=== PATIENT | female | born 1970 | race Caucasian/White ===

== ENCOUNTER 2020-10-27 12:48 | Emergency (ER) | payer MEDICAID ==
[~2020-10-27] VITALS: Ht 160 cm; Wt 63.0 kg
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
--- NOTE | 2020-10-27 13:49 | NUR ---
PT REMOVED ALL MONITORING EQUIPMENT. REMOVED IV. STATES SHE WANTS TO GO HOME. PT EDUCATED THAT WE ARE GOING TO HAVE THE [facility]I DES[facility] COME TALK TO HER AND HELP HER. PT AGREED TO STAY
--- NOTE | 2020-10-27 13:49 | NUR ---
Report from MITCHELL Ibarra. Assumed care.
[2020-10-27 13:52] LABS: BASOPHILS % (AUTO) 1 % (0-1); EOSINOPHILS % (AUTO) 3 % (1-7); LYMPHOCYTES % (AUTO) 29 % (22-44); MEAN CORPUSCULAR HGB CONC 33.8 g/dL (32.4-35.8); MEAN PLATELET VOLUME 7.1 fL (7.4-10.4); MONOCYTES % (AUTO) 5 % (2-9); NEUTROPHILS % (AUTO) 63 % (42-75); PLATELET COUNT 312 x10^3/uL (130-400); RED BLOOD COUNT 4.86 x10^6/uL (3.82-5.3); RED CELL DISTRIBUTION WIDTH 14.4 % (9.6-15.2)
[2020-10-27 13:55] LABS: MD NO
--- NOTE | 2020-10-27 13:57 | NUR ---
Pt requesting that her be called. This RN offering to take husbands number and call and give him update for pt. Pt refusing to give this RN her number. Pt shouting at RN.
--- NOTE | 2020-10-27 13:59 | NUR ---
Pt refusing to have repeat vital signs taken. Pt refusing to wear any monitoring devices.
[2020-10-27 14:04] LABS: ALBUMIN 4.3 g/dL (3.4-5.0); ANION GAP 8 mmol/L (5-15); CALCIUM 8.8 mg/dL (8.5-10.1); CHLORIDE 108 mmol/L (98-107); SALICYLATE LEVEL 3.2 mg/dL (2.8-20.0)
[2020-10-27 14:09] LABS: ALANINE AMINOTRANSFERASE 38 U/L (12-78); ALKALINE PHOSPHATASE 145 U/L (45-117); BILIRUBIN,TOTAL 0.2 mg/dL (0.2-1.0); CREATININE 0.76 mg/dL (0.55-1.02); TOTAL PROTEIN 8.3 g/dL (6.4-8.2)
--- NOTE | 2020-10-27 14:12 | NUR ---
Pt walked out to nurses station, requesting to call . This RN tried calling pt.'s but the number wouldn't go through. Pt back to room. Now allowing nurse to take vital signs. RN provided pt water. Visiting with pt., redirecting, pt resting in bed more at ease now.
--- NOTE | 2020-10-27 15:24 | NUR ---
Pt using phone, talking to , tearful. States she wants to stay and talk to someone about mental health.
--- NOTE | 2020-10-27 15:40 | NUR ---
Pt moved to room 3. Report given to Mirian.
[2020-10-27] MEDS ORDERED: NAPROXEN 500 MG TABLET ONE (15:48)
[2020-10-27] MEDS ORDERED: NAPROXEN 500 MG TABLET PO ONE (16:00)
--- NOTE | 2020-10-27 16:01 | NUR ---
Pt to ER 3, removed of clothing, sitter outside room. Pt given coffee. Ptaware of plan of care. Pt states history of previous psych admission with dialiaudid and heroin abuse and alcoholism. Pt is in [place].
--- NOTE | 2020-10-27 16:09 | NUR ---
Pt medicated iw naproxen for chornic acute knee pain. sitter outside room. drinking coffee.
--- NOTE | 2020-10-27 16:34 | NUR ---
pt up to bathroom. urine sample provided
[2020-10-27 16:59] LABS: AMPHETAMINE SCREEN, URINE Negative (Negative); BARBITURATE SCREEN, URINE Negative (Negative); BENZODIAZEPINE SCREEN, URINE Negative (Negative); CANNABINOID SCREEN, URINE Negative (Negative); COCAINE SCREEN, URINE Negative (Negative); METHADONE SCREEN, URINE Negative (Negative); OPIATE SCREEN, URINE Negative (Negative)
--- NOTE | 2020-10-27 17:52 | NUR ---
Pt eating dinner. Calm Cooperative. Sitter outside room.
--- NOTE | 2020-10-27 18:46 | NUR ---
Report to Marni MEDRANO. Pt is calm, cooperative and sitter outside of room.
--- NOTE | 2020-10-27 18:49 | NUR ---
bedside report from tucker myrick
--- NOTE | 2020-10-27 19:05 | NUR ---
PT SUPINE ON HOSPITAL BED, RESTING COMFORTABLY WITH EYES CLOSED. PT DENIES ANY NEEDS AT THIS TIME. SAFETY PRECAUTIONS IN PLACE AND SITTER IN VIEW.
--- NOTE | 2020-10-27 20:04 | NUR ---
PT SUPINE ON HOSPITAL BED, RESTING COMFORTABLY WATCHING TV. PT PROVIDED WATER PER REQUEST. PT STATES "LUANA BEEN DRINKING A LOT RECENTLY, I NEED SOMETHING TO CALM DOWN" ERP AWARE. SAFETY PRECAUTIONS IN PLACE AND SITTER IN VIEW.
--- NOTE | 2020-10-27 21:04 | NUR ---
PT SUPINE ON HOSPITAL BED, NADN. RESTING COMFORTABLY WITH EYES CLOSED. PT HAS NO NEEDS AT THIS TIME. SAFETY BROWN DOWN AND SITTER IN VIEW.
[2020-10-27] MEDS ORDERED: LORazepam 1MG TABLET ONE (21:56)
[2020-10-27] MEDS ORDERED: LORazepam 1MG TABLET PO ONE (22:00)
--- NOTE | 2020-10-27 22:01 | NUR ---
ERP AT BEDSIDE. PT REQUESTING "SOMETHING FOR NERVES OR FOR THIS SHAKING I AM HAVING". PT MEDICATED PER EMAR. PT DENIES ANY ADITIONAL NEEDS. PT NOW STATING "I SOMETIMES DO WANT TO HURT MYSELF, I DONT KNOW", ORDER FOR TELE PSYCH PLACED, AWAITING CALL. PT RESTING COMFORTABLY.
--- NOTE | 2020-10-27 22:05 | NUR ---
THROUGHPUT RN: TELEPSYCH PAGED, CAMERA SET UP IN ROOM
--- NOTE | 2020-10-27 22:07 | NUR ---
PT ON WITH TELE PSYCH, ANSWERING QUESTIONS APPROPRIATELY. PT DENIES ANY NEEDS AT THIS TIME. PT REMAINS CALM AND COOPERATIVE WITH STAFF.
--- NOTE | 2020-10-27 23:08 | NUR ---
PT SUPINE ON GURNEY RESTING COMFORTABLY WITH EYES CLOSED. PT DENIES ANY NEEDS AT THIS TIME. SAFETY BROWN DOWN AND SITTER IN VIEW.
--- NOTE | 2020-10-27 23:45 | NUR ---
HOSPITAL BED REQUESTED
--- NOTE | 2020-10-27 23:58 | NUR ---
PT SLEEPING SUPINE ON HOSPITAL BEDSUZIE. PT HAS NO NEEDS AT THIS TIME. SITTER IN VIEW AND SAFETY BROWN DOWN. Addendum: 10/27/20 at 2358 by LARISA PT [facility]ING [facility]. PT HAS NO NEEDS AT THIS TIME. SITTER IN VIEW AND SAFETY BROWN DOWN.
--- NOTE | 2020-10-28 00:13 | NUR ---
PT MOVED FROM ED GURNEY TO HOSPITAL BED. PT DENIES ANY ADDITIONAL NEEDS
--- NOTE | 2020-10-28 01:02 | NUR ---
PT RESTING COMFORTABLY WITH EYES CLOSED ON HOSPITAL BED. NO NEEDS AT THIS TIME. SAFETY BROWN DOWN AND SITTER IN VIEW.
--- NOTE | 2020-10-28 02:03 | NUR ---
PT ASLEEP ON HOSPITAL, RESP EVEN/UNLABORED, IN LINE OF SIGHT OF SITTER, SAFETY PRECAUTIONS IN PLACE.
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
--- NOTE | 2020-10-28 02:59 | NUR ---
PT ASLEEP ON HOSPITAL, RESP EVEN/UNLABORED, IN LINE OF SIGHT OF SITTER, SAFETY PRECAUTIONS IN PLACE.
--- NOTE | 2020-10-28 03:32 | NUR ---
TP: [facility] REFUSED PT DUE TO INSURANCE
--- NOTE | 2020-10-28 03:40 | NUR ---
TP: [facility] REFUSED PT DUE TO INSURANCE
--- NOTE | 2020-10-28 03:47 | NUR ---
Gael primary nurse for break. Pt sleeping, RR equal and unlabored sitter in line of site.
--- NOTE | 2020-10-28 03:54 | NUR ---
TP: PT REFUSED BY [facility] FOR INSURANCE REASONS
--- NOTE | 2020-10-28 04:08 | NUR ---
PT ASLEEP ON HOSPITAL BED, RESP EVEN/UNLABORED, IN LINE OF SIGHT OF SITTER, SAFETY PRECAUTIONS IN PLACE.
--- NOTE | 2020-10-28 05:09 | NUR ---
PT ASLEEP ON HOSPITAL BED, RESP EVEN/UNLABORED, IN LINE OF SIGHT OF SITTER, SAFETY PRECAUTIONS IN PLACE.
--- NOTE | 2020-10-28 06:59 | NUR ---
REPORT TO LUIS MEDRANO
--- NOTE | 2020-10-28 07:00 | NUR ---
assumed care of pt. report from Marin MEDRANO. pt here for SI and legal hold. pt is currently sleeping with lights dimmed in position of comfort. room secure. sitter present for safety. awaiting acceptance to mental health
--- NOTE | 2020-10-28 07:46 | NUR ---
no changes. pt continues sleeping in position of comfort. room secure. sitter present for safety. awaiting psych [employer] for eval. awaiting meal tray to be delivered
--- NOTE | 2020-10-28 08:09 | NUR ---
pt continues sleeping. meal tray delivered. pt states that she "just wants another blanket" blanket given. pt has rolled over and gone back to sleep. room secure. sitter present from [place]
--- NOTE | 2020-10-28 09:00 | NUR ---
Berry MEDRANO has assumed care of pt at this time
--- NOTE | 2020-10-28 21:06 | NUR ---
Report from MITCHELL Smart. Pt awake and alert. All needs met at this time. Pt in hospital bed, and in view of sitter.
--- NOTE | 2020-10-29 00:41 | NUR ---
Pt sleeping in view of sitter.
[2020-10-29] MEDS ORDERED: ACETAMINOPHEN 325 MG TABLET ONE ×2 (01:35→11:47)
--- NOTE | 2020-10-29 01:59 | NUR ---
Pt showered with sitter at door.
[2020-10-29] MEDS ORDERED: ACETAMINOPHEN 325 MG TABLET PO ONE ×2 (02:00→12:00)
[2020-10-29 02:06] VITALS: BP 115/70
--- NOTE | 2020-10-29 02:52 | NUR ---
Bedside report to MITCHELL Hopper.
--- NOTE | 2020-10-29 02:52 | NUR ---
REPORT RECEVIED FROM SHIRA MEDRANO
--- NOTE | 2020-10-29 04:44 | NUR ---
pt sleeping. no needs at this time, reps even and unlabored. sitter at doorway and si precautions in place
--- NOTE | 2020-10-29 05:52 | NUR ---
PT RESTING COMFORTABLY, NO NEEDS AT THIS TIME, RESP EVEN AND UNLABORED. SITTER AT BEDSIDE
--- NOTE | 2020-10-29 07:05 | NUR ---
REPORT GIVEN TO MARK MEDRANO
--- NOTE | 2020-10-29 07:10 | NUR ---
PT RESTING IN BED WITH VISIBLE RISE AND FALL OF CHEST OBSERVED. PT BEING OBSERVED BY SITTER.
--- NOTE | 2020-10-29 08:00 | NUR ---
PT GIVEN MEAL TRAY BUT WENT BACK TO SLEEP.
--- NOTE | 2020-10-29 09:00 | NUR ---
PT RESTING WITH VISIBLE RISE AND FALL OF CHEST OBSERVED.
--- NOTE | 2020-10-29 09:51 | NUR ---
REPORT TO JOSEPH MEDRANO.
--- NOTE | 2020-10-29 10:11 | NUR ---
ASSUMED CARE OF PT. REPORT RECEIVED FROM MARK MEDRANO
--- NOTE | 2020-10-29 10:12 | NUR ---
PT UP TO BATHROOM WITH PSA AT DOOR
== END 2020-10-29 13:35 | disposition home or self-care (01) ==
LOC: ED 17:16
DX: F10.120 Alcohol abuse with intoxication, uncomplicated (principal); F32.9 Major depressive disorder, single episode, unspecified; R00.0 Tachycardia, unspecified; Y90.0 Blood alcohol level of less than 20 mg/100 ml
CPT/HCPCS: 36415; 80053; 80178; 80299; 80307; 80320; 80329; 84702; 84703; 85025; 93005; 99285; G0480